=== PATIENT | female | born 2000 | race Two or more races ===

== ENCOUNTER 2025-01-19 13:42 | Inpatient (IN) | payer MEDICAID, OTHER, SELFPAY ==
--- NOTE | ~2025-01-19 | US_ITS ---
CLINICAL HISTORY: EPIGASTRIC ABD PAIN --- Additional Notes or Special Instructions: liver, GB, CBD US abdomen limited Comparison: None Findings: Fatty infiltration of liver without focal abnormality. Right lobe 14.3 cm length. Main portal vein patent with antegrade flow. Visualized pancreas unremarkable. Cholelithiasis without wall thickening. Common duct 5.9 mm diameter. Impression: Cholelithiasis without wall thickening or ductal dilation This document has been electronically signed by: Mohinder Chávez MD on 01/19/2025 21:55:45
[2025-01-19 14:41] VITALS: BP 129/64; PULSE 110; RESP 18; TEMP 37.1; O2SAT 100; BMI 31.1
--- NOTE | 2025-01-19 14:42 | ED_ITS ---
HPI - Abdominal Pain General Chief Complaint: Abdominal Pain Stated Complaint: stomach pain Time Seen by Provider: 01/19/25 19:39 Source: patient Limitations: language barrier History of Present Illness ED Provider: Damari Dimas PA-C HPI narrative: 24-year-old female presents with abdominal pain since earlier this morning. Pain over epigastric and right upper quadrant, described as a ?twisting sensation?. Associated postprandial symptoms with nausea vomiting. Denies fever. Patient has not had episodes in the past. She has no comorbidities, no prior surgical history. Related Data Allergies Allergy/AdvReac Type Severity Reaction Status Date / Time No Known Allergies Allergy Verified 01/19/25 14:43 Review of Systems Review of Systems Yes all other systems are reviewed and are negative Constitutional: Denies fatigue and Denies fever(s) Cardiovascular: Denies chest pain and Denies dyspnea Respiratory: Denies cough and Denies dyspnea Gastrointestinal: Reports abdominal pain, Denies constipation, Denies diarrhea, Reports nausea and Reports vomiting Endocrine: Denies fatigue PMFSH Past Medical History Attestation statement: The following information was validated with the patient. Social History Social History Alcohol intake: never Smoked in Last 30 Days: No Use of substances other than those prescribed or required for medical reasons: No Advance Directives: No Advance Directives Information Provided: No Patient : No Physical Exam ED Vital Signs: Vital Signs - 24 hr 01/19/25 14:41 01/19/25 19:24 01/19/25 20:43 Temperature 98.8 F 98.2 F Pulse Rate 110 H 76 61 Respiratory Rate 18 14 14 Blood Pressure 129/64 120/63 97/47 L Pulse Oximetry 100 99 100 Oxygen Delivery Method Room Air Room Air Room Air 01/19/25 22:29 Temperature Pulse Rate 64 Respiratory Rate 12 Blood Pressure 98/50 L Pulse Oximetry 99 Oxygen Delivery Method Room Air BMI result Body Mass Index 31.1 Const Other: Alert Orientation/consciousness: patient oriented x3 Resp Effort & Inspection: normal respiratory effort Cardio Other: Normal peripheral perfusion GI Other: Abdomen is soft, obese, nondistended, mild to moderate tenderness epigastric and right upper quadrant with a mild involuntary guarding Skin Other: Warm dry no rash Neuro General: patient oriented x3, gait normal, no focal motor deficits and CN's II- XI intact bilaterally Psych Other: Cooperative Course Course Course Narrative: This is a Rapid Medical Exam performed in triage by Tamiko Grace PA-C. Full HPI, ROS and PE to be performed by primary ED provider. 24 yo F Malawian speaking presenting to the ED c/o epigastric abd pain x this AM. +Nausea and emesis x1. PE: nontoxic appearing, abdomen soft and nontender, no rebound or guarding Plan: Labs, UA Consultations Consultation #1: per Dr. Taylor Time: 23:58 Medical Decision Making Medical Decision Making MDM Narrative: 24-year-old female presents with abdominal pain since earlier this morning. Pain over epigastric and right upper quadrant, described as a ?twisting sensation?. Associated postprandial symptoms with nausea vomiting. Denies fever. Patient has not had episodes in the past. She has no comorbidities, no prior surgical history. No chronic issues History: Per patient I have considered the following differential diagnoses: Biliary colic, cholecystitis, gastritis, pancreatitis, GERD Plan: Given distribution of discomfort in nature of symptoms, I am most concerned for biliary colic versus cholecystitis. Screening labs were already obtained from triage, she does have elevation in her LFTs, obtaining ultrasound of the right upper quadrant. Giving Toradol Zofran and fluid. I have independently reviewed the following tests: Labs: Leukocytosis with left shift, not anemic, not , no electrolyte abnormality, LFTs are elevated, total bili 1.2, direct bili 0.7, AST 366, ALT 296, alk phos 147 Ultrasound right upper quadrant:Findings: Fatty infiltration of liver without focal abnormality. Right lobe 14.3 cm length. Main portal vein patent with antegrade flow. Visualized pancreas unremarkable. Cholelithiasis without wall thickening. Common duct 5.9 mm diameter. Impression: Cholelithiasis without wall thickening or ductal dilation Lab Data 01/19/25 15:35 01/19/25 15:35 Labs: Lab Results 01/19/25 01/19/25 Range/Units 15:35 15:36 WBC 11.5 H (4.8-10.8) X10*3/uL RBC 4.49 (4.20-5.50) X10*6/uL Hgb 12.2 (12.0-16.0) g/dl Hct 35.5 L (37.0-47.0) % MCV 79.1 L (80.0-98.0) fL MCH 27.2 (27.0-33.0) pg MCHC 34.4 (31.0-35.0) g/dl RDW 12.2 (11.0-16.0) % Plt Count 301 (160-400) X10*3/uL MPV 9.8 (9.4-12.3) fL Immature Gran % (Auto) 0.2 (0.0-0.4) % Neut % (Auto) 84.5 H (45-73) % Lymph % (Auto) 10.6 L (20-40) % [place] % (Auto) 4.1 (2-11) % Eos % (Auto) 0.3 (0-4) % Baso % (Auto) 0.3 (0-2) % Lymph # (Auto) 1.2 (1.2-4.9) X10*3/uL [place] # (Auto) 0.5 (0.1-1.2) X10*3/uL Eos # (Auto) 0.0 (0.0-0.4) X10*3/uL Baso # (Auto) 0.0 (0.0-0.2) X10*3/uL Abs Immat Gran (auto) 0.02 (0.00-0.03) X10*3/uL Absolute Neuts (auto) 9.7 H (2.0-8.3) x10*3/uL Absolute Nucleated RBC 0.000 (0.0-0.012) X10*3/uL Nucleated RBC % (auto) 0.0 (0.0-0.2) /100WBC Sodium 143 (135-145) mmol/L Potassium 4.2 (3.3-5.1) mmol/L Chloride 107 (96-108) mmol/L Carbon Dioxide 26 (22-29) mmol/L Anion Gap 14 (12-20) BUN 12 (9-16) mg/dL Creatinine 0.54 (0.5-1.4) mg/dL Estim Creat Clear Calc 157.2 Estimated GFR > 60 Random Glucose 121 H (60-115) mg/dL Calcium 10.1 (8.4-10.2) mg/dL Magnesium 2.1 (1.6-2.6) mg/dL Total Bilirubin 1.2 H (0.0-1.0) mg/dL Direct Bilirubin 0.7 H (0.0-0.5) mg/dL AST 366 H (5-31) U/L ALT 296 H (0-31) U/L Alkaline Phosphatase 147 H (39-117) U/L Total Protein 8.4 H (6.5-8.0) g/dL Albumin 5.0 (3.5-5.0) g/dL Lipase 30 (8-78) U/L Urine Color Dark Yellow Urine Appearance Clear Urine pH 5.5 (5.0-9.0) Ur Specific [place] 1.020 (1.005-1.025) Urine Protein Trace (Neg-Trace) mg/dL Urine Glucose (UA) Negative (Negative) mg/dL Urine Ketones Trace (Negative) mg/dL Urine Blood Trace H (Negative) Urine Nitrite Negative (Negative) Ur Leukocyte Esterase Small (1+) H (Negative) Urine RBC 3-5 H (0-2) /HPF Urine WBC 6-10 H (0-5) /HPF Ur Squamous Epith Cells 11-20 (0-2) /HPF Urine Bacteria Trace (None Seen) Hyaline Casts 0-2 (0-2) /LPF Urine Test NEGATIVE (NEGATIVE) Medications Administered Discontinued Medications Generic Name Dose Route Start Last Admin Trade Name Freq PRN Reason Stop Dose Admin Sodium Chloride 1,000 mls @ 999 mls/hr 01/19/25 20:00 01/19/25 21:03 Ns IV 01/19/25 21:00 Infused .Q1H1M SUSAN Infusion Ketorolac Tromethamine 15 mg 01/19/25 19:54 01/19/25 20:03 Ketorolac Tromethamine 15 Mg/Ml Vial IVPUSH 01/19/25 19:55 15 mg ONCE ONE Administration Ondansetron HCl 4 mg 01/19/25 19:54 01/19/25 20:03 Ondansetron Hcl 4 Mg/2 Ml Vial IVPUSH 01/19/25 19:55 4 mg ONCE ONE Administration Discharge Plan Discharge Clinical Impression: Cholelithiasis, Abdominal pain, Transaminitis Patient Disposition: Admitted As Inpatient
[2025-01-19 15:42] LABS: MANUAL DIFF FLAG NO
[2025-01-19 15:43] LABS: Basophils Percent Auto 0.3 % (0-2); Eosinophils Percent Auto 0.3 % (0-4); Hematocrit 35.5 % (37.0-47.0); Hemoglobin 12.2 g/dl (12.0-16.0); Imm Gran Abs Auto 0.02 X10*3/uL (0.00-0.03); Imm Gran Pct Auto 0.2 % (0.0-0.4); Lymphocytes Absolute Auto 1.2 X10*3/uL (1.2-4.9); Lymphocytes Percent Auto 10.6 % (20-40); Mean Corpuscular HGB Conc 34.4 g/dl (31.0-35.0); Mean Corpuscular Hemoglobin 27.2 pg (27.0-33.0); Mean Corpuscular Volume 79.1 fL (80.0-98.0); Mean Platelet Volume 9.8 fL (9.4-12.3); Monocytes Absolute Auto 0.5 X10*3/uL (0.1-1.2); Monocytes Percent Auto 4.1 % (2-11); Neutrophils Absolute Auto 9.7 x10*3/uL (2.0-8.3); Neutrophils Percent Auto 84.5 % (45-73); Platelet Count 301 X10*3/uL (160-400); Red Blood Count 4.49 X10*6/uL (4.20-5.50); Red Cell Distribution Width 12.2 % (11.0-16.0); White Blood Count 11.5 X10*3/uL (4.8-10.8)
[2025-01-19 15:44] LABS: Appearance Urine Clear; Color Urine Dark Yellow; Glucose Urine UA Negative (Negative); Leukocyte Esterase Urine Small (1+) (Negative); Nitrite Urine Negative (Negative); PH 5.5 (5.0-9.0); UMIC TRIGGER UACC YES; Urine Blood Trace (Negative); Urine Ketones Trace mg/dL (Negative); Urine Protein Trace mg/dL (Neg-Trace)
[2025-01-19 15:46] LABS: UPreg QC Valid YES; Urine Pregnancy NEGATIVE (NEGATIVE)
[2025-01-19 15:50] LABS: Bacteria Urine Trace (None Seen); Hyaline Casts Urine 0-2 /LPF (0-2); UACC Culture Trigger YES
[2025-01-19 16:05] LABS: Alanine Aminotransferase 296 U/L (0-31); Anion Gap 14 (12-20); Aspartate Amino Transferase 366 U/L (5-31); Bilirubin Direct 0.7 mg/dL (0.0-0.5); Bilirubin Total 1.2 mg/dL (0.0-1.0); Blood Urea Nitrogen 12 mg/dL (9-16); Calcium 10.1 mg/dL (8.4-10.2); Carbon Dioxide 26 mmol/L (22-29); Chloride 107 mmol/L (96-108); Creatinine Clr Calc Pharmacy 157.2; Estimated Glomerular Filt Rate > 60; Glucose Random 121 mg/dL (60-115); Lipase 30 U/L (8-78); Magnesium 2.1 mg/dL (1.6-2.6); Potassium 4.2 mmol/L (3.3-5.1); Sodium 143 mmol/L (135-145); Total Protein 8.4 g/dL (6.5-8.0)
[2025-01-19 19:12] LABS: Alkaline Phosphatase 147 U/L (39-117)
[2025-01-19 19:24] VITALS: BP 120/63; PULSE 76; RESP 14; TEMP 36.8; O2SAT 99
[2025-01-19] MEDS: 0.9 % Sodium Chloride 1,000 ML 999 ML IV (20:01)
[2025-01-19] MEDS: Ketorolac Tromethamine 15 MG/ML VIAL IVPUSH (20:03)
[2025-01-19] MEDS: ondansetron HCL 4 MG/2 ML VIAL IVPUSH (20:03)
[2025-01-19 20:43] VITALS: BP 97/47; PULSE 61; RESP 14; O2SAT 100
[2025-01-19 22:29] VITALS: BP 98/50; PULSE 64; RESP 12; O2SAT 99
[2025-01-20 08:14] VITALS: BP 106/52; PULSE 59; RESP 16; O2SAT 100
[2025-01-20 09:07] VITALS: BP 109/53; PULSE 66; RESP 16; TEMP 36.3; O2SAT 100; BMI 31.2
[2025-01-20] MEDS: Dextrose 5 % and Lactated Ring 1,000 ML 125 ML IVCONT ×2 (09:24→17:15)
[2025-01-20] MEDS: 0.9 % Sodium Chloride Flush 3 ML SYRINGE IVFLUSH (09:25)
[2025-01-20 09:38] LABS: Albumin Level 4.3 g/dL (3.5-5.0); Alkaline Phosphatase 137 U/L (39-117); Aspartate Amino Transferase 165 U/L (5-31); Bilirubin Direct 0.3 mg/dL (0.0-0.5); Bilirubin Total 0.7 mg/dL (0.0-1.0); Total Protein 7.4 g/dL (6.5-8.0)
[2025-01-20 09:49] LABS: Alanine Aminotransferase 270 U/L (0-31)
--- NOTE | 2025-01-20 10:11 | PHA.MEDREC ---
Addendum entered by Chaim Suazo RPh 01/20/25 11:10: MED REC WAS REVIEWED BY AHMET. Original Note: Pharmacy Consult ? Medication Reconciliation Pharmacy has completed the medication reconciliation. Confirmed with patient.
--- NOTE | 2025-01-20 10:26 | P.HPGS_ITS ---
History of Present Illness History of Present Illness Date of Service: 01/20/25 Chief complaint: acute cholecystitis Narrative: Darlyn Vásquez is a 24 year old female presenting with complaints of abdominal pain in the right upper quadrant and epigastrium. The pain began during the night yesterday approximately 4-5 hours after eating dinner. The pain was associated with nausea and vomiting as well as chills. She denies any previous history of similar problems. The pain did radiate into the back. The pain initially improved but then returned later in the day after eating. She subsequently presented to the emergency department for further evaluation. She is noted to have tenderness in the epigastrium and right upper quadrant. Laboratories revealed an elevated WBC as well as mildly elevated transaminases. An ultrasound of the abdomen revealed cholelithiasis without evidence of gallbladder wall thickening or pericholecystic fluid. There was a negative sonographic Lawrence sign. She is admitted to the general surgery service for further management of her abdominal pain. This morning she reports feeling much improved with no further abdominal pain. Review of Systems Review of Systems: Yes all other systems are reviewed and are negative [facility] Social History Social History Household Members: Family Housing: Apartment Do you presently have visiting nurse or other home services: No Alcohol intake: never Patient Tobacco Use Status: Never used Tobacco Smoked in Last 30 Days: No Use of substances other than those prescribed or required for medical reasons: No Have you been hit, kicked, punched, or otherwise hurt by someone within the past year? If so, by whom?: No Do you feel safe in your current relationship?: No Current Relationship Is there a partner from a previous relationship who is making you feel unsafe now?: No Are you made to feel afraid or neglected: No Advance Directives: No Advance Directives Information Provided: No Do you have a plan to hurt others: No Plan Recently lost weight without trying: No Eating poorly because of decreased appetite: No Nutrition Risks: No Nutritional Risk Patient : No : No Poor oral hygiene: No Meds Allergies Allergy/AdvReac Type Severity Reaction Status Date / Time No Known Allergies Allergy Verified 01/19/25 14:43 Active Medications: Current Medications Calcium Carbonate (Calcium Carbonate 750 Mg Tab.Chew) 750 mg PO Q4H PRN PRN Reason: Heartburn Hydromorphone HCl (Hydromorphone Hcl 0.5 Mg/0.5 Ml Syringe) 0.5 mg IVPUSH Q3H PRN; Protocol PRN Reason: Pain, Severe (Pain Scale 7-10) Acetaminophen (Ofirmev) 1,000 mg in 100 mls @ 400 mls/hr IV Q6H PRN PRN Reason: Pain, Mild (Pain Scale 1-3) Dextrose/Lactated Ringer's (D5lr) 1,000 mls @ 125 mls/hr IVCONT .Q8H [facility] Last Admin: 01/20/25 09:24 Dose: 125 mls/hr Magnesium Hydroxide (Milk Of Magnesia 30 Ml Oral.Susp) 30 ml PO DAILY PRN PRN Reason: Constipation Melatonin (Melatonin 3 Mg Tablet) 6 mg PO BEDTIME PRN PRN Reason: Insomnia Ondansetron HCl (Ondansetron Hcl 4 Mg/2 Ml Vial) 4 mg IVPUSH QID PRN PRN Reason: Nausea Oxycodone HCl (Oxycodone Hcl Immed Release 5 Mg Tablet) 5 mg PO Q6H PRN PRN Reason: Pain, Moderate(Pain Scale 4-6) Sodium Chloride (0.9 % Sodium Chloride Flush 3 Ml Syringe) 3 ml IVFLUSH QSHIFT [facility] Last Admin: 01/20/25 09:25 Dose: 3 ml Home Medications ?Medication ?Instructions ?Recorded ?Confirmed ?Last Taken ?Type No Known Home Meds 01/20/25 01/20/25 Unknown History Physical Exam Vital Signs: Vital Signs: Last Vital Signs Temp 97.3 F 01/20/25 09:07 Pulse 66 01/20/25 09:07 Resp 16 01/20/25 09:07 BP 109/53 L 01/20/25 09:07 Pulse Ox 100 01/20/25 09:07 O2 Del Method Room Air 01/20/25 09:07 BMI result Body Mass Index 31.2 Const: General: cooperative and no acute distress Nutritional Appearance: well nourished Orientation/consciousness: patient oriented x3 Limitations: no limitations HEENT: Head: Yes normocephalic and Yes atraumatic Ears: hearing grossly normal bilaterally Resp: Effort & Inspection: normal respiratory effort, no audible wheezes, no cough and no respiratory distress Cardio: Jugular venous distension: no JVD GI: Other: Soft, nondistended, nontender, negative Lawrence sign, normal bowel sounds, normal to percussion Inspection: Yes normal to inspection Skin: Other: Warm, dry, no rash, normal color Neuro: General: patient oriented x3 Extrem: General: Yes no clubbing, cyanosis or edema Results Results Labs: Short CBC 01/19/25 Range/Units 15:35 WBC 11.5 H (4.8-10.8) X10*3/uL Hgb 12.2 (12.0-16.0) g/dl Hct 35.5 L (37.0-47.0) % Plt Count 301 (160-400) X10*3/uL BMP 01/19/25 15:35 Sodium 143 Potassium 4.2 Chloride 107 Carbon Dioxide 26 BUN 12 Creatinine 0.54 Calcium 10.1 Liver Function 01/19/25 01/20/25 Range/Units 15:35 09:12 Total Bilirubin 1.2 H 0.7 (0.0-1.0) mg/dL Direct Bilirubin 0.7 H 0.3 (0.0-0.5) mg/dL AST 366 H 165 H (5-31) U/L ALT 296 H 270 H (0-31) U/L Alkaline Phosphatase 147 H 137 H (39-117) U/L Albumin 5.0 4.3 (3.5-5.0) g/dL Urine 01/19/25 Range/Units 15:36 Urine Color Dark Yellow Urine Appearance Clear Urine pH 5.5 (5.0-9.0) Ur Specific [place] 1.020 (1.005-1.025) Urine Protein Trace (Neg-Trace) mg/dL Urine Glucose (UA) Negative (Negative) mg/dL Urine Test NEGATIVE (NEGATIVE) Assessment and Plan (1) Cholelithiasis: Qualifiers: Cholelithiasis location: gallbladder Cholecystitis presence: with cholecystitis Cholecystitis acuity: acute Biliary obstruction: without biliary obstruction Qualified Code(s): K80.00 - Calculus of gallbladder with acute cholecystitis without obstruction Status: Acute (2) Transaminitis: Status: Acute (3) Abdominal pain: Qualifiers: Abdominal location: right upper quadrant Qualified Code(s): R10.11 - Right upper quadrant pain Status: Acute Plan 24-year-old female patient presenting with postprandial right upper quadrant abdominal pain with associated nausea and vomiting. Workup revealed elevated WBC and transaminases. Ultrasound confirmed gallstones within the gallbladder without secondary evidence of acute cholecystitis. This morning the patient is improved. I will recheck her liver function tests and if elevated obtain a MRCP. If there are normal we may be able with a begin p.o. or arrange for cholecystectomy. Discussed the options with the patient in detail with the assistance of a readers' advisory service librarian and she expressed understanding. Quality Stroke Does the patient have a stroke diagnosis?: No VTE Prior VTE?: No VTE Risk Level:: Surgical - low VTE Device Contraindication: N/A - Device Ordered VTE Drug Contraindication: Treatment Not Indicated Procedures Date of Service Date of Service: 01/20/25
[2025-01-20 14:00] VITALS: BP 106/59; PULSE 69; RESP 16; TEMP 36.6; O2SAT 100
--- NOTE | 2025-01-20 16:27 | MHC.CM.PN ---
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
[2025-01-20 22:00] VITALS: BP 118/60; PULSE 85; RESP 18; TEMP 36.1; O2SAT 100
[2025-01-21] MEDS: Dextrose 5 % and Lactated Ring 1,000 ML 125 ML IVCONT (01:08)
[2025-01-21 03:27] VITALS: BP 105/65; PULSE 60; RESP 16; TEMP 36; O2SAT 99
[2025-01-21] MEDS: 0.9 % Sodium Chloride Flush 3 ML SYRINGE IVFLUSH (07:12)
[2025-01-21 07:39] VITALS: BP 99/57; PULSE 60; RESP 16; TEMP 36.6; O2SAT 99
--- NOTE | 2025-01-21 08:47 | P.PNGS_ITS ---
Subjective Subjective Date of Service: 01/21/25 Interval history: Feels well this morning. Denies any abdominal pain. Ate dinner last night without pain, nausea or vomiting. Wants to go home. Physical Exam 2 Vital Signs: Vital Signs: Last Vital Signs Temp 97.9 F 01/21/25 07:39 Pulse 60 01/21/25 07:39 Resp 16 01/21/25 07:39 BP 99/57 L 01/21/25 07:39 Pulse Ox 99 01/21/25 07:39 O2 Del Method Room Air 01/21/25 07:39 BMI result Body Mass Index 31.2 Const: General: comfortable, no acute distress and alert O rientation/consciousness: patient oriented x3 Resp: Effort & Inspection: normal respiratory effort GI: Inspection: Yes normal to inspection and No distended Palpation (GI): S oft to palpation, nontender, no guarding and not rigid Skin: General skin exam: no rashes or lesions noted and no jaundice Neuro: General: patient oriented x3 and moves all extremities Objective Data Active Medications Calcium Carbonate (Calcium Carbonate 750 Mg Tab.Chew) 750 mg PO Q4H PRN PRN Reason: Heartburn Hydromorphone HCl (Hydromorphone Hcl 0.5 Mg/0.5 Ml Syringe) 0.5 mg IVPUSH Q3H PRN; Protocol PRN Reason: Pain, Severe (Pain Scale 7-10) Acetaminophen (Ofirmev) 1,000 mg in 100 mls @ 400 mls/hr IV Q6H PRN PRN Reason: Pain, Mild (Pain Scale 1-3) Dextrose/Lactated Ringer's (D5lr) 1,000 mls @ 125 mls/hr IVCONT .Q8H [facility] Last Admin: 01/21/25 01:08 Dose: 125 mls/hr Documented By: NICA Magnesium Hydroxide (Milk Of Magnesia 30 Ml Oral.Susp) 30 ml PO DAILY PRN PRN Reason: Constipation Melatonin (Melatonin 3 Mg Tablet) 6 mg PO BEDTIME PRN PRN Reason: Insomnia Ondansetron HCl (Ondansetron Hcl 4 Mg/2 Ml Vial) 4 mg IVPUSH QID PRN PRN Reason: Nausea Oxycodone HCl (Oxycodone Hcl Immed Release 5 Mg Tablet) 5 mg PO Q6H PRN PRN Reason: Pain, Moderate(Pain Scale 4-6) Sodium Chloride (0.9 % Sodium Chloride Flush 3 Ml Syringe) 3 ml IVFLUSH QSHIFT SUSAN Last Admin: 01/21/25 07:12 Dose: 3 ml Documented By: ANISHA Labs 01/19/25 15:35 01/19/25 15:35 Labs: Laboratory Results - last 24 hr 01/20/25 09:12 Hold Purple Top SEE NOTE Total Bilirubin 0.7 Direct Bilirubin 0.3 AST 165 H ALT 270 H Alkaline Phosphatase 137 H Total Protein 7.4 Albumin 4.3 Microbiology Microbiology Results: Microbiology 01/19/25 15:51 Urine Culture - Final Urine Catheterized - Dimas Catheter No growth. Procedures Date of Service Date of Service: 01/21/25 Progress Note: A&P Assessment and plan (1) Cholelithiasis: Status: Acute (2) Transaminitis: Status: Acute Plan Tolerating solid diet without recurrence of abdominal pain. Bilirubin normalized yesterday and transaminitis improving. Abd remains very benign, soft and nontender. Stable for dc to home today, f/u in office in 1 week. She has no PCP and she was instructed to obtain one. Time Spent With Patient Time: Total time managing care of this patient today ____ minutes. Quality Stroke Does the patient have a stroke diagnosis?: No VTE Prior VTE?: No VTE Risk Level:: Surgical - low VTE Device Contraindication: N/A - Device Ordered VTE Drug Contraindication: Treatment Not Indicated
--- NOTE | 2025-01-21 09:10 | MHC.CM.PN ---
pt dcd home self care
--- NOTE | 2025-01-21 13:54 | PM.DS ---
DS: Providers Provider Date of Service: 01/21/25 Date of admission: 01/20/25 00:06 Date of discharge: 01/21/25 Primary care physician: Adan Physician Attending physician on admission: Matthew Taylor Attending physician on discharge: Matthew Taylor DS: Diagnosis Discharge Diagnosis (1) Cholelithiasis: Status: Acute (2) Transaminitis: Status: Acute DS: Summary Hospital Course Hospital Course: HPI AT ADMISSION: Darlyn Vásquez is a 24 year old female presenting with complaints of abdominal pain in the right upper quadrant and epigastrium. The pain began during the night yesterday approximately 4-5 hours after eating dinner. The pain was associated with nausea and vomiting as well as chills. She denies any previous history of similar problems. The pain did radiate into the back. The pain initially improved but then returned later in the day after eating. She subsequently presented to the emergency department for further evaluation. She is noted to have tenderness in the epigastrium and right upper quadrant. Laboratories revealed an elevated WBC as well as mildly elevated transaminases. An ultrasound of the abdomen revealed cholelithiasis without evidence of gallbladder wall thickening or pericholecystic fluid. There was a negative sonographic Lawrence sign. HOSPITAL COURSE: She is admitted to the general surgery service for further management of her abdominal pain. She felt improved the following morning with no further abdominal pain. Repeat LFTs showed bilirubin normal and transaminase improved. She expressed the desire to try food. She was advanced to a solid diet. The following day, the day of discharge, she was tolerating a solid diet without any abdominal pain, nausea or vomiting. Her abdomen remained benign and soft, nontender. She felt ready for discharge to home. She was discharged to home on 01/21/25 in stable condition. She is to follow up in the office in 1 week. Status at Discharge Functional status at discharge: independent ambulation Overall status at discharge: patient is back to baseline Time Attestation Discharge Coordination Time (in mins): 25 Quality: Safe Use of Opioids Does Pt have an Active Cancer Diagnosis on the Problem List?: No Quality: Stroke Does the patient have a stroke diagnosis?: No Physical Exam Vital Signs: Vital Signs: Last Vital Signs Temp 97.9 F 01/21/25 07:39 Pulse 60 01/21/25 07:39 Resp 16 01/21/25 07:39 BP 99/57 L 01/21/25 07:39 Pulse Ox 99 01/21/25 07:39 O2 Del Method Room Air 01/21/25 07:39 BMI result Body Mass Index 31.2 Const: General: comfortable, no acute distress and alert Orientation/consciousness: patient oriented x3 Resp: Effort & Inspection: normal respiratory effort GI: Inspection: No distended Palpation (GI): Soft to palpation and nontender Skin: General skin exam: no rashes or lesions noted and no jaundice Neuro: General: patient oriented x3 Discharge Plan Discharge Anticipated Discharge Date/Time: 01/21/25 09:38 Patient Disposition: Home, Self-Care Discharge Diagnosis: Abdominal pain, cholelithiasis Referrals: Matthew Taylor MD [Physician] - 1 Week Physician,None [Primary Care Provider] - 1 Week Discharge Medications: No Action No Known Home Meds Discharge Orders: Discharge Order (Routine); Ordered 01/21/25 Ordered By: Rach Otero Diet: Low fat, low cholesterol Activity on Discharge: As tolerated Stand Alone Forms: Patient Portal Discharge page Print Language: Malay Activity Restrictions/Additional Instructions: Follow up in the office regarding your abdominal pain and gallstones. Call Your Doctor If: ? ? -Your temperature exceeds 101.5? F? ? ? -You experience excessive pain or swelling ? ? -You have an unexpected reaction to medication ? ? -You experience continued vomiting/nausea Care Plan Goals: Resume normal activity and diet Health Concerns: Abdominal pain, cholelithiasis Plan of Treatment: Bowel rest, antibiotic Assessment: Biliary colic, cholelithiasis Discharge Date/Time: 01/21/25 09:30
== END 2025-01-21 09:30 | disposition home or self-care (01) ==
LOC: HO.ED 19:54 → HO.EDOVER 01-20 00:20 → HO.S3 01-20 07:58
PROVIDERS: Physician Assistant; Admitting Provider Surgery; Emergency Provider Emergency Medicine; Visit Provider Surgery
DX: K80.20 Calculus of gallbladder without cholecystitis without obstruction (principal)
CPT/HCPCS: 36415; 76705; 80048; 80076; 81001; 81025; 83690; 83735; 85025; 87086; 99285; J1885; J2405

== ENCOUNTER → 2025-01-19 19:53 | Outpatient (BNV) | payer MEDICAID, SELFPAY | PROVIDERS: Emergency Provider Emergency Medicine; Visit Provider Radiology Diagnostic Radiology | DX: K80.20 Calculus of gallbladder without cholecystitis without obstruction (principal) | CPT/HCPCS: 76705 ==

== ENCOUNTER → 2025-01-20 00:06 | Outpatient (BNV) | payer MEDICAID, SELFPAY | PROVIDERS: Admitting Provider Surgery; Emergency Provider Emergency Medicine; Visit Provider Surgery | DX: K80.00 Calculus of gallbladder with acute cholecystitis without obstruction (principal); R74.01 Elevation of levels of liver transaminase levels; R10.11 Right upper quadrant pain | CPT/HCPCS: 99222 ==